=== PATIENT | female | born 1950 | race Caucasian/White ===

== ENCOUNTER → 2018-12-28 | Outpatient (CLI) | payer MEDICARE ==
[~2018-12-28] MED LIST: ASPI81EC; CYCL10 PO; LEVSOD100; METO100; PROG100; [UNRECOGNIZED DRUG - OTHER]
[2018-12-28 13:59] LABS: BASOPHILS ABSOLUTE AUTO 0.02 K/mm3 (0.00-0.23); BASOPHILS PERCENT AUTO 0 % (0-2); EOSINOPHILS ABSOLUTE AUTO 0.04 K/mm3 (0.00-0.68); EOSINOPHILS PERCENT AUTO 0 % (0-6); Hematocrit 36.8 % (33.0-51.0); Hemoglobin 11.9 g/dL (11.5-16.0); IMMATURE GRAN ABSOLUTE AUTO 0.02 K/mm3 (0.00-0.10); IMMATURE GRAN PERCENT AUTO 0 % (0-1); LYMPHOCYTES ABSOLUTE AUTO 0.48 K/mm3 (0.84-5.20); LYMPHOCYTES PERCENT AUTO 5 % (21-46); MONOCYTES ABSOLUTE AUTO 0.48 K/mm3 (0.16-1.47); MONOCYTES PERCENT AUTO 5 % (4-13); Mean Corpuscular HGB 26.8 pg (26.0-34.0); Mean Corpuscular HGB Conc 32.3 g/dL (31.5-36.5); Mean Corpuscular Volume 83 fL (80-100); Mean Platelet Volume 9.9 fL (9.1-12.4); NEUTROPHILS ABSOLUTE AUTO 8.36 K/mm3 (1.96-9.15); NEUTROPHILS PERCENT AUTO 89 % (41-73); Platelet Count 328 K/mm3 (150-400); RDW Coefficient Variation 14.6 % (11.7-14.2); RDW Standard Deviation 43.8 fL (35.1-46.3); Red Blood Cell Count 4.44 M/mm3 (3.80-5.20)
[2018-12-28 14:16] LABS: Alanine Aminotransfer (ALT/SGP 19 U/L (12-78); Albumin, Blood 3.6 g/dL (3.4-5.0); Albumin/Globulin Ratio 0.9 (0.8-1.8); Alk Phos 80 U/L (40-126); Anion Gap 10 mmol/L (6-16); Aspartate Aminotrans (AST/SGOT 16 U/L (12-37); Bilirubin, Total 0.5 mg/dL (0.1-1.0); Blood Urea Nitrogen 19 mg/dL (8-24); Bun/Creatinine Ratio 22.1 (12.0-20.0); CO2, Blood 28 mmol/L (21-32); Calcium, Blood 9.1 mg/dL (8.5-10.1); Chloride, Blood 102 mmol/L (98-108); Creatinine, Blood 0.86 mg/dL (0.40-1.00); Globulin, Blood 3.9 g/dL (2.2-4.0); Glomerular Filtration Rate >60 (60-); Glucose, Blood 118 mg/dL (70-99); Potassium, Blood 3.5 mmol/L (3.5-5.5); Sodium, Blood 140 mmol/L (136-145); Total Protein, Blood 7.5 g/dL (6.4-8.2)
== END ==
LOC: LAB SHORT 13:56 → LAB EV 13:56
PROVIDERS: Emergency Medicine
DX: A05.9 Bacterial foodborne intoxication, unspecified (principal)
CPT/HCPCS: 80053; 85025

== ENCOUNTER → 2018-12-29 | Outpatient (CLI) | payer MEDICARE ==
[2018-12-30 11:08] LABS: Adenovirus F 40/41 Not Detected (NOT DETECT); Astrovirus Not Detected (NOT DETECT); Campylobacter Sp Not Detected (NOT DETECT); Cryptosporidium Not Detected (NOT DETECT); Cyclospora Cayetanensis Not Detected (NOT DETECT); E. Coli O157 Not Detected (NOT DETECT); Entamoeba Histolytica Not Detected (NOT DETECT); Enteroaggregative E. coli-EAEC Not Detected (NOT DETECT); Enteropathogenic E. coli-EPEC Not Detected (NOT DETECT); Enterotoxigenic E. coli-ETEC Not Detected (NOT DETECT); Giardia Lamblia Not Detected (NOT DETECT); Norovirus GI/GII Detected (NOT DETECT); Plesiomonas Shigelloides Not Detected (NOT DETECT); Rotavirus A Not Detected (NOT DETECT); Salmonella Sp Not Detected (NOT DETECT); Sapovirus Not Detected (NOT DETECT); Shiga Toxin-prod E. coli-STEC Not Detected (NOT DETECT); Shigella/Enteroin E. coli-EIEC Not Detected (NOT DETECT); Vibrio Cholerae Not Detected (NOT DETECT); Vibrio Sp Not Detected (NOT DETECT); Yersinia Enterocolitica Not Detected (NOT DETECT)
== END ==
LOC: LAB EV 22:30
PROVIDERS: Emergency Medicine
DX: A05.9 Bacterial foodborne intoxication, unspecified (principal)
CPT/HCPCS: 87507

== ENCOUNTER 2021-01-12 17:20 | Inpatient (IN) | payer MEDICARE ==
[~2021-01-12] VITALS: Ht 165.1 cm; Wt 85.3 kg
[~2021-01-12 17:20] MED LIST changes: -LEVSOD100; +LEVSOD100 PO
[2021-01-12 18:31] LABS: BASOPHILS ABSOLUTE AUTO 0.08 K/mm3 (0.00-0.23); BASOPHILS PERCENT AUTO 0 % (0-2); EOSINOPHILS ABSOLUTE AUTO 0.14 K/mm3 (0.00-0.68); EOSINOPHILS PERCENT AUTO 1 % (0-6); Hematocrit 38.7 % (33.0-51.0); IMMATURE GRAN ABSOLUTE AUTO 0.21 K/mm3 (0.00-0.10); IMMATURE GRAN PERCENT AUTO 1 % (0-1); LYMPHOCYTES PERCENT AUTO 8 % (21-46); MONOCYTES ABSOLUTE AUTO 1.74 K/mm3 (0.16-1.47); MONOCYTES PERCENT AUTO 8 % (4-13); Mean Corpuscular HGB 30.1 pg (26.0-34.0); Mean Corpuscular HGB Conc 33.6 g/dL (31.5-36.5); Mean Corpuscular Volume 90 fL (80-100); Mean Platelet Volume 10.1 fL (9.1-12.4); NEUTROPHILS ABSOLUTE AUTO 19.34 K/mm3 (1.96-9.15); NEUTROPHILS PERCENT AUTO 83 % (41-73); Platelet Count 370 K/mm3 (150-400); RDW Coefficient Variation 13.5 % (11.7-14.2); RDW Standard Deviation 44.2 fL (35.1-46.3); Red Blood Cell Count 4.32 M/mm3 (3.80-5.20); White Blood Cell Count 23.31 K/mm3 (4.00-11.30)
[2021-01-12 18:55] LABS: Alanine Aminotransfer (ALT/SGP 25 U/L (12-78); Albumin, Blood 3.6 g/dL (3.4-5.0); Albumin/Globulin Ratio 0.9 (0.8-1.8); Alk Phos 70 U/L (50-136); Anion Gap 6 mmol/L (6-16); Aspartate Aminotrans (AST/SGOT 11 U/L (12-37); Bilirubin, Total 0.7 mg/dL (0.1-1.0); Blood Urea Nitrogen 22 mg/dL (8-24); Bun/Creatinine Ratio 34.8 (12.0-20.0); CO2, Blood 26 mmol/L (21-32); Calcium, Blood 9.1 mg/dL (8.5-10.1); Chloride, Blood 103 mmol/L (98-108); Creatinine, Blood 0.63 mg/dL (0.40-1.00); Globulin, Blood 3.8 g/dL (2.2-4.0); Glomerular Filtration Rate >60 (60-); Glucose, Blood 111 mg/dL (70-99); Potassium, Blood 3.8 mmol/L (3.5-5.5); Sodium, Blood 135 mmol/L (136-145); Total Protein, Blood 7.4 g/dL (6.4-8.2)
[2021-01-12 19:57] LABS: Source, Urine Clean Catch
[2021-01-12 20:00] LABS: Appearance, Urine Clear (Clear); Bilirubin, Urine Neg (Neg); Blood, Urine Neg (Neg); Color, Urine Yellow (P-Yellow); Glucose Qualitative, Urine Neg (Neg); Ketones, Urine Neg (Neg); Leukocyte Esterase, Urine 2+ (Neg); Nitrite, Urine Neg (Neg); Protein, Urine Neg (Neg); Urobilinogen, Urine NORM (Normal)
[2021-01-12 20:15] LABS: Bacteria Mod /hpf; Red Blood Cells, Urine Not Seen /hpf (0-2); Squamous Epithelial Cells Few /hpf (Few)
[2021-01-13] MEDS ORDERED: LOSA25 PO (00:14)
[2021-01-13] MEDS ORDERED: BETAPACE AF PO (00:15)
[2021-01-13] MEDS ORDERED: Pravachol20 MG PO (00:17)
[2021-01-13] MEDS ORDERED: XARELTO20 MG PO (00:17)
[2021-01-13] MEDS ORDERED: Chromium Pico400 MCG PO (00:19)
[2021-01-13] MEDS ORDERED: VITAMIN D5000 UNIT PO (00:19)
[2021-01-13] MEDS ORDERED: CYAN500 PO (00:20)
[2021-01-13] MEDS ORDERED: Vitamin B Comple1 EA PO (00:21)
[2021-01-13] MEDS ORDERED: OYSTER SHELL 51 EACH PO (00:21)
[2021-01-13] MEDS ORDERED: TURMERIC500 M2 PO (00:23)
[2021-01-13] MEDS ORDERED: COQ-10100 MG PO (00:23)
[2021-01-13] MEDS ORDERED: IRON18 MG PO (00:25)
[2021-01-13] MEDS ORDERED: ESOM20 PO (02:14)
[2021-01-13] MEDS ORDERED: MAGNESIUM OXID500 MG PO (02:15)
[2021-01-13 04:48] LABS: BASOPHILS ABSOLUTE AUTO 0.06 K/mm3 (0.00-0.23); BASOPHILS PERCENT AUTO 0 % (0-2); EOSINOPHILS ABSOLUTE AUTO 0.06 K/mm3 (0.00-0.68); EOSINOPHILS PERCENT AUTO 0 % (0-6); Hematocrit 35.5 % (33.0-51.0); Hemoglobin 11.7 g/dL (11.5-16.0); IMMATURE GRAN ABSOLUTE AUTO 0.12 K/mm3 (0.00-0.10); IMMATURE GRAN PERCENT AUTO 1 % (0-1); LYMPHOCYTES ABSOLUTE AUTO 1.53 K/mm3 (0.84-5.20); LYMPHOCYTES PERCENT AUTO 10 % (21-46); MONOCYTES ABSOLUTE AUTO 1.18 K/mm3 (0.16-1.47); MONOCYTES PERCENT AUTO 7 % (4-13); Mean Corpuscular HGB 30.2 pg (26.0-34.0); Mean Corpuscular Volume 92 fL (80-100); Mean Platelet Volume 10.2 fL (9.1-12.4); NEUTROPHILS ABSOLUTE AUTO 13.16 K/mm3 (1.96-9.15); NEUTROPHILS PERCENT AUTO 82 % (41-73); Platelet Count 290 K/mm3 (150-400); RDW Standard Deviation 46.6 fL (35.1-46.3); Red Blood Cell Count 3.88 M/mm3 (3.80-5.20); White Blood Cell Count 16.11 K/mm3 (4.00-11.30)
[2021-01-13 05:07] LABS: Alanine Aminotransfer (ALT/SGP 20 U/L (12-78); Albumin/Globulin Ratio 0.8 (0.8-1.8); Alk Phos 60 U/L (50-136); Anion Gap 3 mmol/L (6-16); Aspartate Aminotrans (AST/SGOT 11 U/L (12-37); Bilirubin, Total 0.8 mg/dL (0.1-1.0); Blood Urea Nitrogen 17 mg/dL (8-24); Bun/Creatinine Ratio 24.3 (12.0-20.0); CO2, Blood 30 mmol/L (21-32); Calcium, Blood 8.7 mg/dL (8.5-10.1); Chloride, Blood 104 mmol/L (98-108); Globulin, Blood 3.6 g/dL (2.2-4.0); Glomerular Filtration Rate >60 (60-); Glucose, Blood 102 mg/dL (70-99); Potassium, Blood 3.9 mmol/L (3.5-5.5); Sodium, Blood 137 mmol/L (136-145); Total Protein, Blood 6.6 g/dL (6.4-8.2)
--- NOTE | 2021-01-13 06:14 | NUR ---
SHIFT SUMMARY NEW ER ADMIT THIS SHIFT (2249), NO ACUTE CHANGES SINCE ASSUMING CARE, MEDICATED 2X FOR ABD PAIN WHICH RADIATES TO BACK, KPAD ALSO APPLIED TO BACK, PT IS A&O X4, PLEASANT, MINIMAL ST BY ASSIST TO BR, USES CALL LIGHT APPROP, BEDRESTING AT THIS TIME, CALL LIGHT IN REACH, WILL CONT TO MONITOR UNTIL REPORT GIVEN TO DAY RN.
--- NOTE | 2021-01-13 16:35 | NUR ---
SHIFT SUMMARY PATIENT MEDICATED X1 FOR PAIN THIS SHIFT. DENIES NAUSEA AND SHORTNESS OF BREATH. UP SBA FOR LINE MANAGEMENT TO BR. DR. PAREKH CONSULTED ON PATIENT, NO SURGERY AT THIS TIME. PATIENT NPO. TELE SHOWING NSR IN 70'S.
[2021-01-13] MEDS ORDERED: LOSARTAN-HCTZ1 EAC5 PO (23:53)
--- NOTE | 2021-01-14 04:43 | NUR ---
SHIFT SUMMARY PT CONTINUES TO REPORT ABD PAIN, MOST SEVERE IN LUQ. TENDER TO PALPATION. HOWEVER PT REPORTS THAT PAIN HAS MUCH IMPROVED. MEDICATED X 1 W/ 2 MG IV MORPHINE WITH GOOD EFFECT. NO BOWEL MOVEMENTS OR NAUSEA THIS EVENING. VITAL SIGNS STABLE. NO ACUTE CHANGES THIS SHIFT. WILL CONTINUE TO MONITOR.
--- NOTE | 2021-01-14 16:43 | NUR ---
SHIFT SUMMARY PATIENT MEDICATED X2 FOR PAIN THIS SHIFT. DENIES NAUSEA AND SHORTNESS OF BREATH. UP INDEPENDENT IN ROOM. REPORTS ABDOMINAL PAIN IS MUCH LESS TODAY. DR. PAREKH CONSULTED ON PATIENT, NEW ORDERS TO ADVANCE DIET TO CLEAR LIQUID. PATIENT TOLERATING WELL. PLEASANT AND COOPERATIVE WITH CARE.
[2021-01-15 05:10] LABS: BASOPHILS ABSOLUTE AUTO 0.05 K/mm3 (0.00-0.23); BASOPHILS PERCENT AUTO 1 % (0-2); EOSINOPHILS ABSOLUTE AUTO 0.25 K/mm3 (0.00-0.68); EOSINOPHILS PERCENT AUTO 3 % (0-6); Hematocrit 34.6 % (33.0-51.0); Hemoglobin 11.1 g/dL (11.5-16.0); IMMATURE GRAN ABSOLUTE AUTO 0.05 K/mm3 (0.00-0.10); IMMATURE GRAN PERCENT AUTO 1 % (0-1); LYMPHOCYTES ABSOLUTE AUTO 1.36 K/mm3 (0.84-5.20); LYMPHOCYTES PERCENT AUTO 14 % (21-46); MONOCYTES ABSOLUTE AUTO 0.76 K/mm3 (0.16-1.47); MONOCYTES PERCENT AUTO 8 % (4-13); Mean Corpuscular HGB 29.8 pg (26.0-34.0); Mean Corpuscular HGB Conc 32.1 g/dL (31.5-36.5); Mean Corpuscular Volume 93 fL (80-100); Mean Platelet Volume 10.5 fL (9.1-12.4); NEUTROPHILS ABSOLUTE AUTO 7.08 K/mm3 (1.96-9.15); NEUTROPHILS PERCENT AUTO 74 % (41-73); Platelet Count 273 K/mm3 (150-400); RDW Coefficient Variation 13.4 % (11.7-14.2); RDW Standard Deviation 45.8 fL (35.1-46.3); Red Blood Cell Count 3.73 M/mm3 (3.80-5.20); White Blood Cell Count 9.55 K/mm3 (4.00-11.30)
[2021-01-15 05:45] LABS: Alanine Aminotransfer (ALT/SGP 16 U/L (12-78); Albumin, Blood 2.6 g/dL (3.4-5.0); Albumin/Globulin Ratio 0.7 (0.8-1.8); Alk Phos 51 U/L (50-136); Anion Gap 6 mmol/L (6-16); Aspartate Aminotrans (AST/SGOT 11 U/L (12-37); Bilirubin, Total 0.6 mg/dL (0.1-1.0); Blood Urea Nitrogen 11 mg/dL (8-24); Bun/Creatinine Ratio 16.8 (12.0-20.0); CO2, Blood 28 mmol/L (21-32); Calcium, Blood 8.5 mg/dL (8.5-10.1); Chloride, Blood 110 mmol/L (98-108); Creatinine, Blood 0.65 mg/dL (0.40-1.00); Globulin, Blood 3.6 g/dL (2.2-4.0); Glomerular Filtration Rate >60 (60-); Glucose, Blood 86 mg/dL (70-99); Magnesium, Blood 1.9 mg/dL (1.6-2.4); Phosphorus, Blood 2.7 mg/dL (2.5-4.9); Potassium, Blood 3.5 mmol/L (3.5-5.5); Sodium, Blood 144 mmol/L (136-145); Total Protein, Blood 6.2 g/dL (6.4-8.2)
--- NOTE | 2021-01-15 11:00 | NUR ---
PHYSICIAN ROUNDING: DR. HEALY IN TO SEE PT. HE INFORMED HER OF THE MASS ON HER KIDNEY WITH CONCERN FOR POSSIBLY MALIGNANCY. PT IS TEARFUL AND REQUESTS DR. HEALY DISCUSS THIS WITH HER WHILE HER EX- IS ON SPEAKER PHONE. 1 MG IV ATIVAN GIVEN PER DR. HEALY'S REQUEST. DIET ADVANCED TO FULL LIQUID TO SEE HOW PT TOLERATES IN HOPES OF BEING ABLE TO GO HOME TOMORROW AND F/U OUTPATIENT WITH UROLOGY IN CONCERN TO HER KIDNEY MASS. PT REQUESTS TO HAVE THE DOOR CLOSED SO SHE CAN REST. CALL LIGHT IN REACH.
--- NOTE | 2021-01-15 17:38 | NUR ---
SHIFT SUMMARY: PT TOLERATED HER FULL LIQUID LUNCH. LOOKING FORWARD TO HOPEFULLY GOING HOME TOMORROW. NO ACUTE CHANGES TO REPORT. WILL CONTINUE TO MONITOR AND REPORT TO ONCOMING RN.
--- NOTE | 2021-01-16 05:45 | NUR ---
SHIFT SUMMARY: PATIENT IS A&OX4, NO REPORT OF PAIN OR NAUSEA, ABD. IS TENDER WITH PALPATION. BM X2, BOTH SMALL AND FORMED PER PATIENT. VOIDING WITHOUT DIFFICULTY. BP WAS ELEVATED AT 170/75, HYDRALAZINE WAS GIVEN, RECHECK WAS 158/90. PATIENT WAS ASYMPTOMATIC. PATIENT REQUESTED SOMETHING TO HELP HER RELAX AND SLEEP. [employer]OGD[employer] WAS NOTIFIES AND ORDER FOR ATIVAN 1MG X1 WAS OBTAINED AND MED WAS GIVEN WITH GOOD EFFECT.
[2021-01-16] MEDS ORDERED: VISBIOME 112.51 EACH PO (10:00)
[2021-01-16] MEDS ORDERED: ACET325 PO (10:00)
[2021-01-16] MEDS ORDERED: AMOCLA875 PO (10:00)
--- NOTE | 2021-01-16 11:25 | NUR ---
DISCHARGE PT DISCHARGED TO HOME VIA WC WITH . IV DCD. PT AWARE THE FOLLOW UP APPOINTMENTS FOR UROLOGIS AND SURGEON WITHIN A WEEK. PT MEDS FAXED TO PHARMACY. PT EDUCATED ABOUT NEW MEDICATIONS WITH EXPLANATION WITH MEDICATIONS LIST AND CHANGES. DENIES ANY SOB OR PAIN PRIOR TO DISCHARGE.
--- NOTE | 2021-01-16 18:23 | NUR ---
ADMIT:01/13/21 DISCHARGE: 01/16/21 DX:Abdominal pain CC: cpeabody CECELIA CALL: Met with patient prior to discharge, call her at home for cecelia, 1 week cecelia RESIDENCE: Home with CAREGIVER:Shelly Nolan, Child, DX: HTN, GERD, Afib, Garcia's esophagus, see list DME: none, mobile with out devices CCM: none HOME HEALTH: not home bound at this time. SUMMARY: Admit 01/13/21 Discharge 01/16/21 Home with . Discussed EFM transition of care call tomorrow or thursday, for 1 week f/u appointment. Dr Leon entered a referral for Urology stat for Dr Case. I printed the referral and faxed chart notes to his office in [place] at 12:00 pm. Discussed this with Halle, asked her to call me if she has any problems with getting this appointment due to missing documentation. cp 01/15/21 Met with Halle and her , reviewed her care coordination assessment. Did not identify any care needs she would require at home. Would like assistance with Urology referral. 1. 70-year-old female coming in with an acute distal descending colon diverticulitis with microperforation. 2. Hypertension, exacerbated by her pain and infection. 3. Incidental note of renal cysts, which will need further outpatient workup. 4. History of atrial fibrillation, on anticoagulation.
== END 2021-01-16 10:42 | disposition home or self-care (01) | DRG 392 ==
LOC: ER 17:20 → MEDS 17:21
PROVIDERS: Emergency Medicine; Hospitalist; ADMIT Internal Medicine
DX: K57.20 Diverticulitis of large intestine with perforation and abscess without bleeding (principal); I48.20 Chronic atrial fibrillation, unspecified; N28.89 Other specified disorders of kidney and ureter; I10 Essential (primary) hypertension; E03.9 Hypothyroidism, unspecified; K22.70 Barrett's esophagus without dysplasia; Z79.01 Long term (current) use of anticoagulants; K59.09 Other constipation
CPT/HCPCS: 36415; 74170; 74177; 80053; 81001; 83690; 83735; 83880; 84100; 85025; 86140; 87086; 93005; 93010; 96365-59; 96375-59; 99285-25; A9270; J0295; J0360; J1650; J2060; J2270; J2405; J3010; J7030; Q9967